=== PATIENT | male | born 1960 | race Caucasian/White ===

== ENCOUNTER 2018-03-19 10:29 | Inpatient (IN) | payer OTHER ==
[~2018-03-19] VITALS: Ht 167.6 cm; Wt 80.3 kg
[2018-03-19] VITALS (53 sets, daily range): BP systolic 77–174; BP diastolic 47–98
[2018-03-19 10:54] LABS: HEMATOCRIT 40.3 % (42.0-52.0); HEMOGLOBIN 12.4 gm/dL (14.0-18.0); MCH 33.1 pg (26.0-34.0); MCHC 30.8 g/dL (28.0-37.0); MCV 107.5 fL (80.0-100.0); MPV 7.5 fl. (7.2-11.1); NUCLEATED RBCS 0 /100WBC; PLATELET COUNT* 179 thou/uL (150-400); RBC 3.75 mil/uL (4.50-6.00); RDW-CV 15.4 % (10.5-14.5); WBC 13.9 thou/uL (4.0-11.0)
[2018-03-19 11:05] LABS: ANION GAP 21 mmol/L (7-16); BUN 13 mg/dL (7-18); CALCIUM 7.5 mg/dL (8.5-10.1); CHLORIDE 101 mmol/L (98-107); CO2 17 mmol/L (21-32); CREATININE 1.4 mg/dL (0.6-1.3); GLUCOSE 393 mg/dL (70-99); POTASSIUM 3.3 mmol/L (3.5-5.1); SODIUM 139 mmol/L (136-145)
[2018-03-19] MEDS ORDERED: METFORMIN HCL500 MG PO (11:06)
[2018-03-19 11:07] LABS: APTT 30.7 Seconds (25.0-31.3); INR 1.1; PROTIME 10.9 Seconds (9.20-11.50)
[2018-03-19] MEDS ORDERED: IMDUR 30 MG TAB30 M1 PO (11:07)
[2018-03-19] MEDS ORDERED: PLAVIX 75 MG TA75 MG PO (11:07)
--- NOTE | 2018-03-19 11:10 | NUR ---
PER FAMILY PT IS VISITING HIS DAUGHTER FROM [place] HE WAS OUT SHOVELING THE SNOW AND CAME INSIDE C/O OF SOA PT THEN WENT UNRESPONSIVE. EMS SUMMONED AND PT FOUND IN CARDIAC ARREST.
[2018-03-19 11:22] LABS: ALBUMIN 2.7 g/dL (3.4-5.0); ALKALINE PHOSPHATASE 100 U/L (46-116); CK-MB MASS 1.3 ng/mL (<0.5-3.6); LIPASE 310 U/L (73-393); MAGNESIUM 2.1 mg/dL (1.8-2.4); NT-PRO BRAIN NAT PEPTIDE 58 pg/mL (<300); SGOT 476 U/L (15-37); SGPT 676 U/L (30-65); TOTAL BILIRUBIN 0.5 mg/dL (<0.1-1.0); TOTAL PROTEIN 5.9 g/dL (6.4-8.2); TROPONIN-I LEVEL <0.06 ng/mL (<0.06)
[2018-03-19 11:54] LABS: ABSOLUTE LYMPHOCYTES 9.5 thou/uL (0.8-5.3); ABSOLUTE MONOCYTES 0.3 thou/uL (0.0-1.2); ABSOLUTE NEUTROPHILS 4.2 thou/uL (1.6-8.1); ATYPICAL LYMPHS 3 %
[2018-03-19 11:59] LABS: ANISOCYTOSIS Occasional; MACROCYTES 1+; PLATELET ESTIMATE ADEQUATE
[2018-03-19 12:28] LABS: BE -14.4 mmol/L (-2 to +3); HCO3 14.3 mmol/L (22.0-26.0); PCO2 43.6 mmHg (35.0-45.0); PO2 114.6 mmHg (75.0-100.0)
[2018-03-19 12:29] LABS: pH 7.135 (7.340-7.450)
[2018-03-19 14:18] LABS: CALCIUM 6.9 mg/dL (8.5-10.1); CREATININE 1.1 mg/dL (0.6-1.3); POTASSIUM 3.7 mmol/L (3.5-5.1)
[2018-03-19 14:30] LABS: ALBUMIN 3.1 g/dL (3.4-5.0); TOTAL BILIRUBIN 0.7 mg/dL (<0.1-1.0); TOTAL PROTEIN 6.5 g/dL (6.4-8.2)
[2018-03-19 16:08] LABS: BE -14.8 mmol/L (-2 to +3); HCO3 13.5 mmol/L (22.0-26.0)
[2018-03-19 16:10] LABS: PO2 157.9 mmHg (75.0-100.0); pH 7.146 (7.340-7.450)
--- NOTE | 2018-03-19 16:16 | 2DMMODE ---
[place] [address] 2 D/M-MODE ECHOCARDIOGRAM Name: FAHAD STEVENS Room: [address] IN [facility]#: [id number] Admission: 03/19/18 Attend Phys: Seng Herrera Discharge: Date of : 60 Date of Service: 03/19/18 1616 Report #: [id number] THIS REPORT FOR: //name// APPROVED REPORT Study performed: 03/19/2018 15:32:44 EXAM: Comprehensive 2D, Doppler, and color-flow Echocardiogram Patient Location: In-Patient Room #: [facility] [place] Status: routine BSA: 2.07 HR: 76 bpm BP: 90/62 mmHg Rhythm: NSR Other Information Study Quality: Good Indications Arrhythmia 2D Dimensions IVSd: 11.50 (7-11mm) LVOT Diam: 21.16 (18-24mm) LVDd: 44.71 mm PWd: 9.20 (7-11mm) Ascending Ao: 30.92 (22-36mm) LVDs: 36.07 (25-40mm) Aortic Root: 32.09 mm Volumes Left Atrial Volume (Systole) LA ESV Index: 25.40 mL/m2 Aortic Valve AoV Peak Jim.: 0.92 m/s AO Peak Gr.: 3.36 mmHg LVOT Max P.42 mmHg AO Mean Gr.: 2.00 mmHg LVOT Mean P.24 mmHg LVOT Max V: 0.78 m/s AO V2 VTI: 18.24 cm LVOT Mean V: 0.51 m/s ANTHONY (VTI): 3.08 cm2 LVOT V1 VTI: 15.97 cm Mitral Valve E/A Ratio: 1.05 MV Decel. Time: 188.55 ms MV E Max Jim.: 0.63 m/[place] [address] 2 D/M-MODE ECHOCARDIOGRAM Name: FAHAD STEVENS Room: [address] IN .R.#: [id number] Admission: 03/19/18 Attend Phys: Seng Herrera Discharge: Date of : 60 Date of Service: 03/19/18 1616 Report #: [id number] MV PHT: 54.68 ms MVA (PHT): 4.02 cm2 TDI E/Lateral E': 6.30 E/Medial E': 7.00 Medial E' Jim.: 0.09 m/s Lateral E' Jim.: 0.10 m/s Pulmonary Valve PV Peak Jim.: 0.75 m/s PV Peak Gr.: 2.28 mmHg Tricuspid Valve RAP Estimate: 5.00 mmHg TR Peak Gr.: 26.38 mmHg RVSP: 31.00 mmHg PA Pressure: 31.00 mmHg Left Ventricle Left ventricle is mildly dilated. There is severe global hypokinesis of the left ventricle. There is normal left ventricular wall thickness. Left ventricular systolic function is severely decreased. LVEF is 25-30%. Right Ventricle The right ventricle is normal size. The right ventricular systolic function is normal. Atria Left atrium is moderately dilated. The right atrium size is normal. Aortic Valve The aortic valve is normal in structure. No aortic regurgitation is present. There is no aortic valvular stenosis. Mitral Valve The mitral valve is normal in structure. Trace mitral regurgitation. No evidence of mitral valve stenosis. Tricuspid Valve The tricuspid valve is normal in structure. Mild tricuspid regurgitation. Mild pulmonary hypertension. Pulmonic Valve The pulmonary valve is normal in structure. There is no pulmonic [place] [address] 2 D/M-MODE ECHOCARDIOGRAM Name: FAHAD STEVENS Room: [address] IN [facility]#: [id number] Admission: 03/19/18 Attend Phys: Seng Herrera Discharge: Date of : 60 Date of Service: 03/19/18 1616 Report #: [id number] Great Vessels The aortic root is normal in size. IVC is normal in size and collapses >50% with inspiration. Pericardium There is no pericardial effusion. <Conclusion> Left ventricle is mildly dilated. There is normal left ventricular wall thickness. Left ventricular systolic function is severely decreased. LVEF is 25-30%. There is severe global hypokinesis of the left ventricle. Left atrium is moderately dilated. Trace mitral regurgitation. Mild tricuspid regurgitation. Mild pulmonary hypertension. <ELECTRONICALLY SIGNED> By: Gennaro Ly MD, FACC 03/19/18 1616 161 161 Gennaro yL MD, FACC /INF
--- NOTE | 2018-03-19 16:50 | EKG ---
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: Milagros MORENO : 1960 Requested By: Wilberto Almaguer Order Number: [id number] MD: Gennaro Ly Measurements Intervals [place] Rate: 60 P: NV: QRS: 25 QRSD: 119 T: 26 QT: 421 QTc: 421 Interpretive Statements Junctional rhythm Nonspecific intraventricular conduction delay Borderline repolarization abnormality No previous ECG available for comparison Electronically Signed On 03-19-2018 16:50:32 DIRECTOR TEEN POST by Gennaro Ly [email or web address] <ELECTRONICALLY SIGNED> By: Gennaro Ly MD, [facility] 03/19/18 1650 103 30 Gennaro Ly MD, FACC /EPI
[2018-03-19 18:26] LABS: CALCIUM 7.3 mg/dL (8.5-10.1); CREATININE 1.2 mg/dL (0.6-1.3); POTASSIUM 4.1 mmol/L (3.5-5.1)
--- NOTE | 2018-03-19 18:38 | NUR ---
PT NOT PROGRESSING TOWARD GOALS. PT ARRIVED IN THE ICU AT 1130AM. CODE ICE STARTED AT 1200 PT NOT ON SEDATION, NO ANAND, CODE ICE NOT STARTED. UNABLE TO PLACE A ANAND. UROLOGY WAS CONSULTED. ONLY WAY TO START CODE ICE ON PT WAS TO INSERT A RECTAL TEMP. TEMPERATURE HARD TO MONITOR. TEMP PROBE WILL NOT STAY IN RECTUM. PT FAMILY AT BEDSIDE. DOES NOT SPEAK [place]. DAUGHTERS AND GRANDSON DO SPEAK [place] AND ABLE TO RELAY INFORMATION ON TO . PT CURRENTLY ON TWO PRESSERS AND STABLE.
[2018-03-19 20:43] LABS: BE -9.7 mmol/L (-2 to +3); HCO3 18.4 mmol/L (22.0-26.0); PCO2 48.2 mmHg (35.0-45.0); PO2 84.2 mmHg (75.0-100.0)
[2018-03-19 20:45] LABS: pH 7.199 (7.340-7.450)
[2018-03-20] VITALS (77 sets, daily range): BP systolic 76–144; BP diastolic 20–86
[2018-03-20 03:02] LABS: URINE BILIRUBIN NEGATIVE (Negative); URINE BLOOD NEGATIVE (Negative); URINE CLARITY CLEAR; URINE COLOR YELLOW; URINE GLUCOSE-RANDOM TRACE (Negative); URINE KETONES 1+ (Negative); URINE LEUKOCYTES-REFLEX NEGATIVE (Negative); URINE NITRITE-REFLEX NEGATIVE (Negative); URINE PROTEIN NEGATIVE (Negative); URINE UROBILINOGEN 0.2 E.U./dl (0.2-1.0)
[2018-03-20 03:29] LABS: ABSOLUTE LYMPHOCYTES 1.3 thou/uL (0.8-5.3); ABSOLUTE MONOCYTES 0.3 thou/uL (0.0-1.2); ABSOLUTE NEUTROPHILS 12.9 thou/uL (1.6-8.1); BASOPHILS 0.2 %; EOSINOPHILS 0.1 %; HEMATOCRIT 44.5 % (42.0-52.0); HEMOGLOBIN 14.3 gm/dL (14.0-18.0); LYMPHOCYTES 8.9 %; MCH 32.7 pg (26.0-34.0); MCHC 32.1 g/dL (28.0-37.0); MONOCYTES 2.1 %; MPV 7.3 fl. (7.2-11.1); NUCLEATED RBCS 0 /100WBC; PLATELET COUNT* 197 thou/uL (150-400); POLYS 88.7 %; RBC 4.37 mil/uL (4.50-6.00); RDW-CV 15.1 % (10.5-14.5); WBC 14.6 thou/uL (4.0-11.0)
[2018-03-20 03:35] LABS: APTT 23.4 Seconds (25.0-31.3); INR 1.1
[2018-03-20 03:38] LABS: CALCIUM 7.7 mg/dL (8.5-10.1); CREATININE 0.9 mg/dL (0.6-1.3); MAGNESIUM 1.5 mg/dL (1.8-2.4); PHOSPHORUS* 1.8 mg/dL (2.5-4.9)
[2018-03-20 03:50] LABS: CK-MB MASS 31.8 ng/mL (<0.5-3.6)
[2018-03-20 03:52] LABS: POTASSIUM 2.6 mmol/L (3.5-5.1); TROPONIN-I LEVEL 3.13 ng/mL (<0.06)
[2018-03-20 06:28] LABS: BE -3.6 mmol/L (-2 to +3); HCO3 21.4 mmol/L (22.0-26.0); PCO2 38.6 mmHg (35.0-45.0); pH 7.361 (7.340-7.450)
[2018-03-20 06:30] LABS: PO2 139.9 mmHg (75.0-100.0)
--- NOTE | 2018-03-20 06:44 | NUR ---
PT. REMAINS ON CODE ICE PROTOCOL, HAS MAINTAINED CORE TEMP BETWEEN 89-93 DEGREES F. VECURONIUM GTT STARTED TO CONTROL SHIVERING, LEVOPHED AND NEOSYNEPHRINE GTT'S OFF AT THIS TIME. POTASSIUM, MAGNESIUM, AND PHOS REPLACING. NEXT LABS DUE AT 1200. PT. TO START REWARMING AT [phone]. TURNED Q2H TO PROMOTE SKIN INTEGRITY. UPDATES GIVEN TO PT'S DAUGHTERS, PT'S DOES NOT SPEAK LIBERIAN. PT. HAS BEEN BRADYCARDIC, SINUS ARRYTHMIA, LOOKS JUNCTIONAL AT TIMES. BILAT SOFT WRIST RESTRAINTS REMAIN IN PLACE. AMIO GTT, INSULIN GTT REMAIN INFUSING. ABG IMPROVED THIS A.M. LACTIC ACID REMAINS ELEVATED. REMAINS 1:1, WILL CONTINUE TO MONITOR.
--- NOTE | 2018-03-20 08:53 | NUR ---
WOUND CARE NOTE: CONSULT RECEIVED FOR PT INTUBATED/ POST CODE, CODE ICE. PATIENT WITH LASHAE OF 10, INTUBATED AND ON A PARALYTIC. EXTREMELY HIGH RISK OF PRESSURE ULCER DEVELOPMENT. HEELS ARE INTACT OFFLOADED APPROPRIATELY WITH PILLOW. MACERATION NOTED TO PROXIMAL EDGARDO-ANAL AREA WITH PARTIAL THICKNESS BREAKDOWN. BELIEVE THIS IS RELATED TO MOISTURE, NOT PRESSURE. LOW AIR LOSS MATTRESS IN PLACE. RECOMMEND TURN Q2 HOURS-KEEP OFF SUPINE/SEMI FOWLERS POSITION IF PATIENT ABLE TO TOLERATE. KEEP HEELS FLOATED OFF BED, ENSURE MEDICAL DEVICES ARE NOT CAUSING PRESSURE LIMIT HOB ELEVATION TO LOW POSSIBLE
--- NOTE | 2018-03-20 10:23 | NUR ---
DR CARNEY FROM CARDIOLOGY ORDERED 4 BAGS OF POTASSIUM 10 MEQ'S EACH. PT ALREADY ON ELECTROLYTE PROTOCOL AND TO RECEIVE 6 BAGS OF 20 MEQ'S EACH. CALLED CARDIOLOGY TO CONFIRM REPLACEMENT OF POTASSIUM. PER CARIOLOGY REPLACE ELECTROLYTE PROTOCOL. GIVE THE 20MEQS PER PROTOCOL.
--- NOTE | 2018-03-20 10:45 | NUR ---
PT ADMITTED YESTERDAY AFTER COLLAPSING AT HOME, REMAINS ON VENT AND CODE ICE PROTOCAL. PT AND LIVE IN [place], DO NOT SPEAK FRENCH. THEY HAVE BEEN VISITING THEIR DTR BRENDA. SPOKE WITH BRENDA, DISCUSSED ROLE OF CASE MGT. WILL CONTINUE TO FOLLOW.
--- NOTE | 2018-03-20 11:07 | NUR ---
Nutrition: Pt admitted and is code ICE. Holding TF/nutrition for now. Jose Elias score 10. H/o HIV, CHF, DM. Has shock liver, SIRS, metabolic acidosis, per progress notes. Intubated and on paralytic. Has OGT. K+ 2.6, BG 164, alb 3.1, prealb 19.8. Will follow POC, 03/21/18.
[2018-03-20 12:09] LABS: ABSOLUTE LYMPHOCYTES 1.4 thou/uL (0.8-5.3); ABSOLUTE MONOCYTES 0.2 thou/uL (0.0-1.2); ABSOLUTE NEUTROPHILS 12.1 thou/uL (1.6-8.1); BASOPHILS 0.2 %; HEMATOCRIT 42.2 % (42.0-52.0); HEMOGLOBIN 13.6 gm/dL (14.0-18.0); MCH 32.6 pg (26.0-34.0); MCHC 32.2 g/dL (28.0-37.0); MCV 101.3 fL (80.0-100.0); MONOCYTES 1.6 %; MPV 7.4 fl. (7.2-11.1); NUCLEATED RBCS 0 /100WBC; PLATELET COUNT* 181 thou/uL (150-400); POLYS 88.2 %; RBC 4.17 mil/uL (4.50-6.00); RDW-CV 15.2 % (10.5-14.5); WBC 13.7 thou/uL (4.0-11.0)
[2018-03-20 12:30] LABS: CALCIUM 7.1 mg/dL (8.5-10.1); CREATININE 0.9 mg/dL (0.6-1.3); MAGNESIUM 1.9 mg/dL (1.8-2.4); PHOSPHORUS* 1.3 mg/dL (2.5-4.9)
--- NOTE | 2018-03-20 12:41 | CON ---
[facility] [address] [place] [address] CONSULTATION Name: FAHAD STEVENS Room: [address] IN M.R.#: [id number] Admission: 03/19/18 Attend Phys: Jordan Mcwilliams Discharge: Date of : 60 Report #: [id number] THIS REPORT FOR: //name// CC: [facility] physician/PCP Seng Herrera DATE OF SERVICE: 03/20/2018 REQUESTING PHYSICIAN: Seng Herrera MD. REASON FOR CONSULTATION: Acute respiratory failure, status post out of hospital cardiopulmonary arrest on cooling protocol. DISCUSSION: The patient is a 57-year-old nonsmoking man who normally resides in [place]. He was visiting his daughter and son-in-law and was staying at their home. Apparently, he had been helping with snow removal (his son-in-law just been discharged from the hospital where he was treated for severe asthma). He had gone into the house, complaining of marked shortness of breath. ED notes indicate he had "foam" coming from his mouth, collapsed, EMS was called. Apparently, he was shocked 3 times, was intubated. His rhythm was V-tach, received epinephrine. He did receive CPR en route. Unknown what his actual downtime was. He did have normal sinus blood pressure at the time of presentation to the ED. Central line was placed in the Emergency Department. He was evaluated. Cardiology was also contacted. He had imaging studies done. Subsequently, he was placed on the cooling protocol. He was still on that when he was seen by me earlier this morning. PAST MEDICAL HISTORY: He is a nonsmoker. He has no known pulmonary disease. He does have a history of angina, details not clear. He has never had open heart surgery nor any stents placed. Also, he has a history of diabetes mellitus and hypertension as well as HIV. HOME MEDICATIONS: Have been metformin, Plavix and Imdur as well. He is receiving antiviral therapy with HAART. SOCIAL HISTORY: He lives in [place]. Nonsmoker. He is up here visiting family. FAMILY HISTORY: Unable to obtain from the patient. Per family, it is positive for hypertension. REVIEW OF SYSTEMS: Unable to obtain from the patient. PHYSICAL EXAMINATION: GENERAL: Appearance of a man looks his stated age. He is currently sedated and paralyzed on the ventilator. He has a cooling protocol in place. HEENT: Head appears normocephalic. Sclerae nonicteric[place] [address] CONSULTATION Name: FAHAD STEVENS Room: [address]#: [id number] Admission: 03/19/18 Attend Phys: Jordan Mcwilliams Discharge: Date of : 60 Report #: [id number]. He is orally intubated, also has an oral gastric tube in place. NECK: Without any adenopathy. No JVD is noted. No supraclavicular adenopathy. HEART: Regular. He is mildly tachycardic. No S3 is heard. LUNGS: Sounds are clear. Excursion is equal. No wheezing is heard. ABDOMEN: Appears soft. GENITOURINARY: Suresh catheter is in place. EXTREMITIES: Femoral pulses are present. He has no clubbing. No edema is noted. Extremities are normal in appearance. They are cool given his hypothermia. He does have an IJ catheter in place. NEUROLOGIC: Cannot assess as he is sedated and paralyzed on the ventilator. LABORATORY AND X-RAY FINDINGS: Chest x-ray done this morning shows endotracheal tube in position; does have some right upper lobe infiltrate/atelectasis. It is improved from studies done yesterday. He did have a CT chest done yesterday, no contrast. Endotracheal tube is noted. He had right upper lobe atelectasis/infiltrate, some small infiltrate seen in the lower lobes bilaterally. He had CT scan done of his abdomen, would suggest some hepatic steatosis, some mild urinary bladder mural thickening. CT head without contrast was negative for acute findings. This morning his BUN is 19, creatinine of 0.9, serum bicarbonate is 26, improved from 17 yesterday. Transaminases are elevated, his AST is 781, ALT 969, total bilirubin 0.7, alkaline phosphatase 128, total protein 6.5, albumin 3.1. Lactic acid was 14.6 on admission, down to 5.4 this morning. He had a peak troponin yesterday evening of 6.99 down to 3.13 this morning. INR was 1.1. White blood cell count 14,600, hemoglobin 14.3, hematocrit 44.5, MCV is 102, platelets are 197,000. Arterial blood gases done initially, he had a pH of 7.135, pCO2 of 44, pO2 of 115, bicarb 15 with a saturation of 96%. Most recent blood gases done this morning, pH 7.36, pCO2 of 39, pO2 of 140, bicarbonate 21 with a saturation of 98%. Blood sugar on admission was 393, down to 201 this morning. Blood and urine cultures have been sent, no results are available yet. IMPRESSION: 1. Acute respiratory failure, on ventilator, oxygenating well. 2. Status post out of hospital cardiopulmonary arrest. Apparently he had ventricular tachycardia, most likely related to underlying heart disease. Known history of anginal, he does have a decrease in his ejection fraction. 3. Right upper lobe atelectasis/infiltrate. Unclear if some of this is related to secretions. By history, he did appear to have a respiratory tract infection or pneumonia. He is improving on this morning's films. 4. Shock liver. 5. Marked metabolic acidosis, improved. He had been on bicarbonate drip (discontinued this morning). 6. Hypotension, improved. He is off pressors since early this morning. 7. History of diabetes mellitus, elevated blood sugar on admission. Some of this could be stress related as well [place] [address] CONSULTATION Name: FAHAD STEVENS Room: [address] IN [facility].#: [id number] Admission: 03/19/18 Attend Phys: Jordan Mcwilliams Discharge: Date of : 60 Report #: [id number] 8. History of human immunodeficiency virus, details not clear. By history, he has not had issues with infections. He has been on antiviral therapy. 9. History of hypertension. RECOMMENDATIONS: 1. Suggest to continue vent support. We will follow up blood gases later this afternoon to see if additional vent changes need to be done. Also, follow up blood gases in the morning. We will obviously need to see how he does from a neurological standpoint once he is warmed up. Depending on his hemodynamic status and his neurological status, then hopefully start working on weaning trials. 2. Followup imaging tomorrow. 3. Continue generalized supportive care. 4. I discussed with his daughter at the bedside who does speak [place]. She translated to his who is also at the bedside. 5. Also I had an opportunity to discuss with Dr. Ly from Cardiology. <ELECTRONICALLY SIGNED> By: Shira Banuelos MD 03/20/18 1241 0935 1223Shira Banuelos MD /nt
[2018-03-20 12:46] LABS: APTT 25.4 Seconds (25.0-31.3); PROTIME 10.7 Seconds (9.20-11.50)
--- NOTE | 2018-03-20 13:03 | NUR ---
PT HR WENT INTO 30'S. PT HYPOTENSIVE WITH SYSTOLIC BP IN 70'S MAP OF 59. LEVOPHED RE-STARTED PER ORERS. CARDIOLOGY NOTIFIED. RECEIVED ORDER FOR DOPAMINE GTT. WITHIN 5 MINUTES WENT INTO AN IDIOVENTRICULAR RHYTHM WITH HEART RATE IN 70'S. BP 140'S/70'S. LEVOPHED TITRATED OFF. DOPAMINE TITRATED OFF AND PT WENT BACK INTO SINUS RHYTHM WITH 1ST DEGREE AV BLOCK. CARDIOLOGY NOTIFIED SECOND TIME. RECEIVED ORDER TO STOP DOPAMINE AND GIVE FLUID BOLUS.
[2018-03-20 14:55] LABS: BE -4.8 mmol/L (-2 to +3); HCO3 19.5 mmol/L (22.0-26.0); PCO2 33.9 mmHg (35.0-45.0); PO2 81.8 mmHg (75.0-100.0); pH 7.377 (7.340-7.450)
--- NOTE | 2018-03-20 16:45 | NUR ---
WHEN PT IS REPOSITIONED TO RIGHT SIDE PT BECOMES HYPOTENSIVE WITH SYSTOLIC BP IN 70'S.
[2018-03-20 18:20] LABS: HEMATOCRIT 37.7 % (42.0-52.0); HEMOGLOBIN 12.2 gm/dL (14.0-18.0); MCH 32.4 pg (26.0-34.0); MCHC 32.2 g/dL (28.0-37.0); MCV 100.5 fL (80.0-100.0); MPV 7.1 fl. (7.2-11.1); NUCLEATED RBCS 0 /100WBC; PLATELET COUNT* 186 thou/uL (150-400); RBC 3.75 mil/uL (4.50-6.00); RDW-CV 14.6 % (10.5-14.5); WBC 17.6 thou/uL (4.0-11.0)
[2018-03-20 18:40] LABS: CALCIUM 6.6 mg/dL (8.5-10.1); CREATININE 0.7 mg/dL (0.6-1.3); MAGNESIUM 1.6 mg/dL (1.8-2.4); PHOSPHORUS* 3.1 mg/dL (2.5-4.9)
[2018-03-20 18:41] LABS: POTASSIUM 2.9 mmol/L (3.5-5.1)
--- NOTE | 2018-03-20 18:45 | NUR ---
PT CAME BACK FROM SMOG TECHNICIAN WITH TEMPORARY PACEMAKER IN PLACE. VECRONIUM DC'D. INSULIN HELD FOR 1 HOUR BLOOD GLUCOSE IN 'S.
[2018-03-20 18:47] LABS: ABSOLUTE LYMPHOCYTES 0.7 thou/uL (0.8-5.3); ABSOLUTE MONOCYTES 1.2 thou/uL (0.0-1.2); ABSOLUTE NEUTROPHILS 15.7 thou/uL (1.6-8.1); PLATELET ESTIMATE ADEQUATE
[2018-03-20 19:03] LABS: INR 1.5; PROTIME 15.5 Seconds (9.20-11.50)
[2018-03-20 19:05] LABS: APTT 53.1 Seconds (25.0-31.3)
[2018-03-21] VITALS (50 sets, daily range): BP systolic 86–122; BP diastolic 48–69
[2018-03-21 02:23] LABS: HEMATOCRIT 37.2 % (42.0-52.0); HEMOGLOBIN 12.1 gm/dL (14.0-18.0); MCH 32.6 pg (26.0-34.0); MCHC 32.5 g/dL (28.0-37.0); MCV 100.3 fL (80.0-100.0); MPV 7.5 fl. (7.2-11.1); RBC 3.71 mil/uL (4.50-6.00); RDW-CV 15.1 % (10.5-14.5); WBC 19.9 thou/uL (4.0-11.0)
[2018-03-21 02:38] LABS: ALBUMIN 2.4 g/dL (3.4-5.0); CALCIUM 6.6 mg/dL (8.5-10.1); CREATININE 0.8 mg/dL (0.6-1.3); MAGNESIUM 1.8 mg/dL (1.8-2.4); POTASSIUM 3.9 mmol/L (3.5-5.1); TOTAL BILIRUBIN 0.3 mg/dL (<0.1-1.0); TOTAL PROTEIN 5.6 g/dL (6.4-8.2)
[2018-03-21 02:42] LABS: CHOLESTEROL 123 mg/dL (<200); HDL CHOLESTEROL 36 mg/dL (>40); LDL CHOLESTEROL 66 mg/dL (<100); TC:HDL 3.4 Ratio (Not establshd); TRIGLYCERIDE 107 mg/dL (<150); VLDL 21 mg/dL (<40)
[2018-03-21 02:48] LABS: SERUM ASSESSMENT CLEAR
[2018-03-21 02:50] LABS: TROPONIN-I LEVEL 1.25 ng/mL (<0.06)
--- NOTE | 2018-03-21 15:18 | NUR ---
PT PROGRESSING TOWARD GOALS. DURING SEDATION VACATION, PT OPENED EYES, MOVED HEAD FROM LEFT TO RIGHT, PT DID NOT FOLLOW COMMANDS AND EXHIBITED SEIZURE LIKE ACTIVITY WITH LEFT SHOULDER TWITCHING. SEDATION WAS TURNED BACK ON AND SEIZURE LIKE ACTIVITY CEASED. SHEATH WAS PULLED AT 4413-3275. PT CURRENLTY ON LEVO GTT TO ASSIST WITH BP. PT OFF OF INSULIN GTT AND AGGRASTAT. LOADING DOSE OF EFFIENT WAS GIVEN.
--- NOTE | 2018-03-21 16:36 | CON ---
[facility] [address] [place] [address] CONSULTATION Name: FAHAD STEVENS Room: [address] IN .R.#: [id number] Admission: 03/19/18 Attend Phys: Jordan Mcwilliams Discharge: Date of : 60 Report #: [id number] THIS REPORT FOR: //name// CC: [facility] physician/PCP Seng Herrera DATE OF SERVICE: 03/19/2018 INDICATION: Out of hospital arrest. HISTORY OF PRESENT ILLNESS: The patient is a 57-year-old gentleman who apparently had an out of hospital arrest at home after shoveling some snow. The family that was present witnessed foaming at the mouth and extreme shortness of breath followed by collapse. EMS was notified. The patient was found to be in ventricular fibrillation. The patient required 3 cardioversions to regain a perfusable rhythm. The patient has been admitted to the ICU for code ice protocol. The patient was intubated in the field. No history is available from the patient. Per the chart, the patient's family reports that the patient has angina, diabetes and hypertension. There was no known history of coronary stents or surgeries. PAST MEDICAL HISTORY: As outlined above consists of angina, diabetes and hypertension. LISTED HOME MEDICATIONS: Metformin 500 mg b.i.d., Plavix 75 mg daily, isosorbide mononitrate 30 mg daily. ALLERGIES: None documented. FAMILY HISTORY: Not obtainable. SOCIAL HISTORY: Not obtainable. REVIEW OF SYSTEMS: Not obtainable. PHYSICAL EXAMINATION: GENERAL: Well-kept appearing gentleman who is currently on code ice. He is intubated and unresponsive. He is on low dose pressors as well as amiodarone drip and propofol. HEENT: Normocephalic, atraumatic. NECK: Shows no obvious jugular venous distension. LUNGS: Portions of the chest that are available for exam are clear. CARDIAC: Reveals a regular rhythm. I do not appreciate gallop or murmur. ABDOMEN: Reveals a soft abdomen. EXTREMITIES: Shows no edema. Peripheral pulses 1+ and palpable. SKIN: [place] [address] CONSULTATION Name: FAHAD STEVENS Room: [address] IN [facility]#: [id number] Admission: 03/19/18 Attend Phys: Jordan Mcwilliams Discharge: Date of : 60 Report #: [id number] LABORATORY DATA: EKG post-cardioversion shows what appears to be a junctional rhythm with a nonspecific intraventricular conduction delay. There is no acute ST elevation identified. Labs are reviewed. Initial troponin was less than 0.06. NT-proBNP was unremarkable. Chest x-ray shows bibasilar and right upper lobe atelectasis. CT head was unremarkable. IMPRESSION AND RECOMMENDATIONS: 1. Out of hospital arrest with ventricular arrhythmia, etiology not entirely clear. It is certainly possible the patient has significant underlying ischemic coronary artery disease. He has had no elevation in troponin thus far. We will check serial troponins. There is no evidence of ST elevation myocardial infarction on EKG. Would not proceed with invasive evaluation at this time. We will continue supportive care. Further stress testing or invasive evaluation pending outcome. 2. Diabetes per primary hospitalists. 3. Hypertension. The patient's blood pressure currently low post out of hospital arrest. 4. Ventricular fibrillation. The patient on amiodarone drip. At this point in time, he is maintaining sinus rhythm. Would continue amiodarone for now. We will consider switching to amiodarone per G-tube or orally in the next few days. I would like to obtain echocardiogram to evaluate for any underlying cardiomyopathy. <ELECTRONICALLY SIGNED> By: Gennaro Ly MD, FACC 03/21/18 1636 1326 1729Microbin Ly MD, FACC /nt
--- NOTE | 2018-03-21 17:46 | EKG ---
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 <ELECTRONICALLY SIGNED> By: Gennaro Ly MD, FACC 03/21/18 1746 44 44 Gennaro Ly MD, FACC /EPI
--- NOTE | 2018-03-21 17:48 | EKG ---
[place] [address] ELECTROCARDIOGRAM REPORT Name: FAHAD STEVENS Room: [address] ADM IN M.R.#: [id number] Admission: 03/19/18 Attend Phys: Jordan Mcwilliams Discharge: Date of : 60 Report #: [id number] THIS REPORT FOR: //name// [facility] Test Date: 2018-03-21 Test Time: 08:37:29 Pat Name: FAHAD PAULINO CHANEL Department: Room: [address] Gender: M Clerical Investigator: : 1960 Requested By: Lizandro Ochoa Order Number: [id number] [place] MD: Gennaro Ly Measurements Intervals [place] Rate: 104 P: 124 [place]: 99 QRS: 34 QRSD: 97 T: 250 QT: 437 QTc: 575 Interpretive Statements Sinus tachycardia Borderline repolarization abnormality Prolonged QT interval Compared to ECG 03/19/2018 10:31:21 Prolonged QT interval now present Junctional rhythm no longer present Intraventricular conduction delay no longer present Electronically Signed On 03-21-2018 17:47:55 PRESS OPERATOR APPRENTICE by Gennaro Ly [email or web address] <ELECTRONICALLY SIGNED> By: Gennaro Ly MD, FACC 03/21/18 1747 0837 0837 Gennaro Ly MD, FAC /EPI
[2018-03-22] VITALS (59 sets, daily range): BP systolic 94–166; BP diastolic 55–103
[2018-03-22 04:01] LABS: BE -2.8 mmol/L (-2 to +3); HCO3 21.9 mmol/L (22.0-26.0); PCO2 37.4 mmHg (35.0-45.0); PO2 71.3 mmHg (75.0-100.0); pH 7.385 (7.340-7.450)
--- NOTE | 2018-03-22 04:38 | NUR ---
NO URINE OUTPUT. WHEN REPOSITIONING PT HE BEGAN COUGHING AND URINE WAS SEEN LEAKING AROUND CATHETER. ATTEMPTED TO FLUSH CATHETER, UNABLE TO FLUSH AFTER MULTIPLE ATTEMPTS. CATHETER REMOVED AND REPLACED, IMMEDIATE RETURN OF 600ML DARK YELLOW URINE CONTAINING SEDIMENT.
--- NOTE | 2018-03-22 08:00 | NUR ---
RECEIVED REPORT FROM OPERATIONS SPECIALIST NURSE ALISA. ASSESSMENT CHARTED. PATIENT REMAINS VENTED AND SEDATED. DECREASING SEDATION AT THIS TIME TO PERFORM SEDATION VACATION. SOME PURPOSEFUL MOVEMENT. FENTANYL AND VERSED GTTS REMAIN. MOUTH CARE AND TURNING DONE. FAMILY IN AND OUT TO VISIT THIS AM. GOALS ARE TO REMAIN OFF LEVOPHED, DECREASE SEDATION PATIENT TOLERATES AND Q2H TURNS FOR SKIN INTEGRITY. BED IN LOWEST POSITON, ROLL CUTTING OPERATOR IN PLACE, FALL PRECAUTIONS IN PLACE.
--- NOTE | 2018-03-22 08:43 | NUR ---
PATIENT RANDOMLY DROPPED HEART RATE FROM 104 TO 52 WITH NO STIMULATION. WILL CONTINUE TO MONITOR.
[2018-03-22 08:48] LABS: ABSOLUTE BASOPHILS 0.1 thou/uL (0.0-0.2); ABSOLUTE LYMPHOCYTES 1.6 thou/uL (0.8-5.3); ABSOLUTE MONOCYTES 0.8 thou/uL (0.0-1.2); ABSOLUTE NEUTROPHILS 14.4 thou/uL (1.6-8.1); BASOPHILS 0.5 %; HEMATOCRIT 32.5 % (42.0-52.0); HEMOGLOBIN 10.7 gm/dL (14.0-18.0); LYMPHOCYTES 9.2 %; MCH 33.6 pg (26.0-34.0); MCV 101.8 fL (80.0-100.0); NUCLEATED RBCS 0 /100WBC; PLATELET COUNT* 163 thou/uL (150-400); POLYS 85.3 %; RBC 3.19 mil/uL (4.50-6.00); RDW-CV 15.3 % (10.5-14.5); WBC 16.9 thou/uL (4.0-11.0)
[2018-03-22 09:05] LABS: ALBUMIN 2.3 g/dL (3.4-5.0); CALCIUM 6.5 mg/dL (8.5-10.1); CREATININE 0.9 mg/dL (0.6-1.3); POTASSIUM 3.6 mmol/L (3.5-5.1); TOTAL BILIRUBIN 0.3 mg/dL (<0.1-1.0); TOTAL PROTEIN 5.3 g/dL (6.4-8.2)
--- NOTE | 2018-03-22 11:23 | CARD ---
[address] [address] CARDIAC CATH REPORT Name: FAHAD STEVENS Room: [address] IN [facility].#: [id number] Admission: 03/19/18 Attend Phys: Jordan Mcwilliams Discharge: Date of : 60 Report #: [id number] THIS REPORT FOR: //name// APPROVED REPORT Study performed: 03/20/2018 14:34:26 Patient Details Patient Status: In-Patient Room #: ICU 4 The patient is a 57 year-old male Event Personnel Gennaro Ly Patient Registration Representative, Yovany Buck, Nati Jacobson RN RN, Larry Blanco (R) Flora, Heidi Flanagan RTR Scrub, Lizandro Ochoa Forest Fire Fighter, [place] Mays RN Digital Analyst Dr. Ly Procedures Performed Art Access - R femoral artery* Left Heart Cath w/or w/o Coronaries [facility] w/wo Plasty Single Left Main Indication Non-STEMI Risk Factors Hypercholesterolemia Admission/Lab Medications/Medications given during procedure Aspirin, Platelet Aff. Inhib., Angiomax bolus and infusion Procedure Narrative The patient was brought urgently to the Cardiac Catheterization Laboratory and was prepped and draped in a sterile manner. The right femoral was infiltrated with 2% Lidocaine subcutaneous anesthesia. A 6fr Ultimum Sheath sheath was inserted into the right femoral artery. Coronary angiography was performed using coronary diagnostic catheters. The right coronary system was accessed and visualized with a Diagnostic 6Fr JR 4 catheter. The left coronary system was accessed and visualized with a Diagnostic 6Fr JL 4 catheter. The patient tolerated the procedure well and there were no complications associated with the procedure. Intraoperative Conscious Sedation Sedation start time: 4:13 Case end Time: 5:11 [place] [address] CARDIAC CATH REPORT Name: FAHAD STEVENS Room: [address]#: [id number] Admission: 03/19/18 Attend Phys: Jordan Mcwilliams Discharge: Date of : 60 Report #: [id number] Fluoro Time: 13.1 minutes Dose: DAP [id number] cGycm2 2374 mGy Contrast Type and Amount: Visipaque 300 ml Diagnostic Cath Left Main 90% proximal stenosis LAD 20 Percent proximal narrowing with right to left collaterals filling the LAD in retrograde fashion Circumflex 0% narrowing Right Coronary Dominant vessel with 20% mid vessel narrowing and right to left collaterals filling the LAD system Left Ventriculography Left Ventriculography was not performed. Hemodynamics The aortic pressure is 107/53 mmHg with a mean of 30 mmHg. PCI Technique Lesion Anticoagulation was achieved with Angiomax. Percutaneous coronary intervention was performed on the LM. The lesion stenosis prior to intervention was 90% with CHELSI 3 flow. A 6F JL 3.5 Guide Catheter was used to engage the ostium. A ProWorldMate 180 Interventional Guidewire was used to cross the lesion. BALLOON DILATION A Balloon catheter Trek RX 3.0 X 12 was inserted and inflated up to 16.00atm for 8seconds. Additional Inflation: 20.00atm for 13seconds. STENT DEPLOYMENT A drug-eluting stent Xience Heidy 3.5X8mm was inserted and inflated up to 14.00atm for 8seconds. Additional Inflation: 17.00atm for 6seconds. POST STENT DEPLOYMENT BALLOON DILATION A Balloon catheter NC Trek RX 3.75X8 was inserted and inflated up to 17.00atm for 10seconds. Final angiography reveals 0 % stenosis with CHELSI 3 flow. Conclusion #1 severe coronary disease characterized by the following: A 90% proximal left main [place] [address] CARDIAC CATH REPORT Name: FAHAD STEVENS Room: [address] IN [facility]#: [id number] Admission: 03/19/18 Attend Phys: Jordan Mcwilliams Discharge: Date of : 60 Report #: [id number] B 20% proximal LAD narrowing C 20% narrowing of the midportion of the dominant right coronary artery with right to left collaterals filling the LAD in retrograde fashion #2 placement of a temporary pacemaker via the right femoral venous approach by Dr. Ly #3 successful percutaneous coronary intervention with deployment of drug-eluting stent at site of 90% proximal left main coronary stenosis with 0% residual narrowing and CHELSI-3 flow to distal circulation Recommendations Aggressive Medical Therapy Medications Administered Angiomax bolus and infusion during the case followed by Aggrastat bolus and infusion post-procedurally Diagnostic Cath Approved by: Gennaro Ly MD Date/Time: 03/22/2018 11:22:44 <ELECTRONICALLY SIGNED> By: Lizandro Ochoa MD, [facility] 03/22/18 1123 [id number] Ochoa MD, [facility] /INF
--- NOTE | 2018-03-22 17:32 | NUR ---
SPOKE WITH DAUGHTER, BRENDA AND HER . THEY HAD QUESTIONS ABOUT PT.'S GREEN CARD AND HIS LONG STAY IN HOSPITAL. BRENDA SAID PT. AND HIS WERE HERE FOR ABOUT 3 MONTHS AND TO GO HOME AFTER THE NEW YEAR. TOLD HER MY POTTERY MACHINE OPERATOR,LUIZA, LEFT A MESSAGE FOR VIDA AT [facility]. SHE SHOULD BE CALLING HER TODAY TO ANSWER ANY QUESTIONS SHE MIGHT HAVE. EXPLAINED [facility] TO HER.
--- NOTE | 2018-03-22 18:42 | NUR ---
WEANED DOWN A LOT OF SEDATION THIS SHIFT. PATIENT DOES WAKE UP BUT DOES NOT FOLLOW COMMANDS. DAUGHTER REPORTED TO THIS NURSE THAT PATIENT DOES NOT SPEAK ANY MOHAWK, DAUGHTER ATTEMPTED TO PROMPT HER FATHER TO SQUEEZE HER HAND, WIGGLE HIS TOES OR EVEN FOLLOW THIS NURSES FINGER BUT HE JUST THRASHED HIS HEAD AND DID NOT FOLLOW COMMANDS. NO APPARENT PAIN, FENTANYL GTT REMAINS BUT AT LOW RATE. PRECEDEX GTT STARTED TODAY AND TOLERATING WELL. REMAINS SINUS RHYTHM IN 'S. DR CARNEY SPOKE WITH FAMILY TODAY WELL DR MEJÍA ([facility]). REMAINED OFF LEVO THIS SHIFT ALSO. TOLERATING TUBE FEEDS. FAMILY UPDATED BY NURSE MULTIPLE TIMES THIS SHIFT ALSO, ALL QUESTIONS ANSWERED AT THIS TIME. EARTH SCIENCE TECHNICIAN IN PLACE, BED IN LOW POSITION, FALL PREACUTIONS IN PLACE.
--- NOTE | 2018-03-22 23:14 | NUR ---
ATTEMPTED TO TITRATE DOWN SEDATION DUE TO INTENDED WEANING TRIAL IN AM. FENTANYL REMAINED AT 20 MCG/HR, PRECEDEX GRADUALLY TITRATED OFF. SHORTLY THEREAFTER PT BEGAN THRASHING HEAD AND EXTREMITIES, NO TRACKING OR FOLLOWING COMMANDS, GAZE REMAINED FIXED UPWARD. FAMILY AT BEDSIDE ASKING IF PTS MOVEMENT IS A GOOD SIGN. EXPLAINED POSITIVE SIGNS ARE FOLLOWING COMMANDS, TRACKING MOVEMENT WITH EYES, AND PURPOSEFUL MOVEMENT. DAUGHTER ASKED HOW LONG IT TAKES FOR BRAIN INJURY TO HEAL, EXPLAINED POSSIBILITY OF LITTLE TO NO IMPROVEMENT FROM CURRENT STATE BUT THAT IT IS TOO EARLY TO SAY AND MORE TESTING WOULD LIKE BE REQUIRED. FAMILY VERBALIZED UNDERSTANDING.
[2018-03-23] VITALS (38 sets, daily range): BP systolic 115–170; BP diastolic 61–100
[2018-03-23 04:49] LABS: HEMATOCRIT 32.1 % (42.0-52.0); HEMOGLOBIN 10.5 gm/dL (14.0-18.0); MCH 33.2 pg (26.0-34.0); MCHC 32.7 g/dL (28.0-37.0); MCV 101.4 fL (80.0-100.0); MPV 7.7 fl. (7.2-11.1); RBC 3.17 mil/uL (4.50-6.00); WBC 13.6 thou/uL (4.0-11.0)
[2018-03-23 04:59] LABS: CALCIUM 7.4 mg/dL (8.5-10.1); CREATININE 0.8 mg/dL (0.6-1.3); MAGNESIUM 2.4 mg/dL (1.8-2.4); POTASSIUM 3.8 mmol/L (3.5-5.1)
--- NOTE | 2018-03-23 07:36 | NUR ---
REMAINS STABLE ON VENT. SEDATED ON PRECEDEX GTT ONLY AT THIS TIME. TF ON HOLD SINCE 429 DUE TO POSSIBILITY OF WEANING TRIAL. COMPLETE BED BATH GIVEN. PT HAS BEEN TURNED Q2HR THROUGHOUT THE SHIFT.
[2018-03-23 08:56] LABS: BE 0.5 mmol/L (-2 to +3); HCO3 24.8 mmol/L (22.0-26.0); PCO2 38.5 mmHg (35.0-45.0); PO2 81.2 mmHg (75.0-100.0); pH 7.426 (7.340-7.450)
--- NOTE | 2018-03-23 09:51 | NUR ---
PT TO BE EXTUBATED TODAY. PT STILL ON SEDATION. WILL WEAN SEDATION AND WAKE UP PT BEFORE EXTUBATING THIS AFTERNOON.
--- NOTE | 2018-03-23 10:57 | NUR ---
PT EXTUBATED AT 1050AM. PT ABLE TO NOD HEAD YES WHEN ASKED IF HE IS OK. PTS FAMILY AT BEDSIDE.
--- NOTE | 2018-03-23 16:28 | NUR ---
PT HAD A CHANGE IN RESPIRATORY STATUS. PT GIVEN ATIVAN TO ASSIST WITH HIGH RESPIRATORY RATE. PT CONTINUES TO BE RESTLESS, WITH HIGH RESPIRATORY RATE. CHANGED NC TO HIGH ALBA TO ASSIST WITH LOW SAT OF 88%. ABG AND CXR ORDERED PER ICU PROTOCOL.
[2018-03-23 16:40] LABS: BE 1.8 mmol/L (-2 to +3); HCO3 25.6 mmol/L (22.0-26.0); PCO2 37.4 mmHg (35.0-45.0); PO2 62.7 mmHg (75.0-100.0); pH 7.454 (7.340-7.450)
[2018-03-24] VITALS (12 sets, daily range): BP systolic 110–172; BP diastolic 61–98
[2018-03-24 04:07] LABS: MCH 33.1 pg (26.0-34.0); MCHC 32.4 g/dL (28.0-37.0); MPV 7.5 fl. (7.2-11.1); RBC 3.33 mil/uL (4.50-6.00); RDW-CV 15.3 % (10.5-14.5); WBC 11.7 thou/uL (4.0-11.0)
[2018-03-24 04:18] LABS: CALCIUM 8.1 mg/dL (8.5-10.1); CREATININE 0.8 mg/dL (0.6-1.3); MAGNESIUM 1.8 mg/dL (1.8-2.4); POTASSIUM 3.6 mmol/L (3.5-5.1)
--- NOTE | 2018-03-24 04:53 | NUR ---
PT ABLE TO FOLLOW SOME COMMANDS. WHEN ASKED IN [place] TO BLINK EYES AND OPEN EYES HE RESPONDS. ABLE TO MOVE HANDS AND FEET BUT NOT ON COMMAND. WAS AT BEDSIDE SHE ASKED HIM IF HE KNEW WHO SHE WAS HE OPENED EYES AND NODDED YES. NG WAS PLACED AT BEGINING OF SHIFT TUBE FEEDS NOW AT GOAL RESIDUALS <10. PT THRASHING HEAD CONSTANTLY BUT WHEN ASKED IF HE IS COMFORTABLE HE NODS YES. PT HAD SMALL LIQUID STOOL THIS A.M. CONTINUES ON PRECEDEX GTT TITRATING DOWN. HIGH FLOW 9L 93-95 O2 SAT. PT RECEIVED Q2H TURNS WITH ORAL CARE, MINIMAL ORAL SECRETION. URINE OUTPUT ADEQUATE. BED TO LOWEST POSITION. WILL CONTINUE TO MONITOR CLOSELY.
--- NOTE | 2018-03-24 17:43 | NUR ---
PT ABLE TO RESPOND TO COMMANDS. STILL SLOW AND WEAK BUT RESPONDING. PT MORE ALERT. PRECEDEX GTT HAS BEEN TURNED OFF. PT IS LAUGHING WITH HIS FAMILY AND ASKING APPROPRIATE QUESTIONS. PT ASKED HOW LONG HE HAS BEEN HERE AND HAS ASKED TO USE THE BEDPAN. PT IS GRIPPING WITH BOTH HANDS. STILL UNABLE TO WIGGLE TOES. PT OPENS HIS EYES SPONTANIOUSLY, MOVES ARMS AND LEGS PURPOSEFUL. PT STILL ON HIGH FLOW NASAL CANNULA, COURSE LUNG SOUNDS BUT ABLE TO COUGH. PT ABLE TO COUGH SPUTUM UP AND CLEAR THROAT.
[2018-03-25] VITALS (11 sets, daily range): BP systolic 124–156; BP diastolic 68–82
[2018-03-25 03:55] LABS: ABSOLUTE LYMPHOCYTES 1.3 thou/uL (0.8-5.3); ABSOLUTE MONOCYTES 0.1 thou/uL (0.0-1.2); ABSOLUTE NEUTROPHILS 8.2 thou/uL (1.6-8.1); BASOPHILS 0.2 %; HEMATOCRIT 37.7 % (42.0-52.0); HEMOGLOBIN 12.2 gm/dL (14.0-18.0); LYMPHOCYTES 13.6 %; MCHC 32.4 g/dL (28.0-37.0); MCV 101.9 fL (80.0-100.0); MONOCYTES 1.4 %; MPV 8.2 fl. (7.2-11.1); NUCLEATED RBCS 0 /100WBC; PLATELET COUNT* 181 thou/uL (150-400); POLYS 84.8 %; RDW-CV 14.9 % (10.5-14.5); WBC 9.7 thou/uL (4.0-11.0)
[2018-03-25 04:18] LABS: CREATININE 0.7 mg/dL (0.6-1.3); POTASSIUM 3.9 mmol/L (3.5-5.1)
--- NOTE | 2018-03-25 07:48 | NUR ---
PT IS FOLLOWING COMMANDS, TRIBUNAL MEMBER AND WIGGLES TOES ON COMMAND ,TALKING TO FAMILY, PT IS SEVERELY WEAK, REQUIRES X2 ASSIST TO BEDPAN,PT MAINTANING SATS IN UPPER 90'S ON 8L HIGH FLOW. PT HAD FREQUENT DIARRHEA STOOLS LAST NIGHT, DR BATISTA WAS NOTIFIED, TUBE FEEDING HELD, CDIFF SAMPLE SENT TO LAB AND NUTRITION CONSULTED PER DR'S ORDERS.
--- NOTE | 2018-03-25 11:01 | NUR ---
PT.WAS UP IN WC GETTING READY TO GO TO CT. WAS EXTUBATED OVER THE WEEKEND. WAS ALERT. PER NURSING HE IS SPEAKING WITH HIS FAMILY,LAUGHING,ETC. IS TELE MED STATUS NOW.
--- NOTE | 2018-03-25 19:15 | NUR ---
PT ASSESSMENT CHARTED. VSS THROUGHOUT SHIFT. PT/OT/ST WORKED WITH PATIENT. UP WITH 2 ASSIST THIS MORNING TO THE COMMODE AND IS NOW UP WITH 1 ASSIST TO THE BEDSIDE COMMODE. NO REPORTS OF PAIN. SPEECH THERAPY RECOMMENDED REGULAR DIET WITH THIN LIQUIDS. PT HAD A TRAY FOR DINNER AND TOLERATED WELL. ALSO ABLE TO TAKE PO MEDS WITHOUT DIFFICULTY. PT TO CT THIS MORNING.
[2018-03-26] VITALS (8 sets, daily range): BP systolic 118–133; BP diastolic 52–72
--- NOTE | 2018-03-26 06:51 | NUR ---
Pt speaks Kyrgyz only. stayed in room overnight, also Kyrgyz-speaking only. Recliner brought into room for per family request. VSS. O2 at 3L per NC; SaO2 low to mid-90s. SR per monitor. Tmax 99.3 overnight. Pt appeared to be sleeping soundly shortly after 0600. Will continue to monitor.
--- NOTE | 2018-03-26 09:49 | NUR ---
PT ASSESSMENT CHARTED. VSS THIS MORNING. EATING WITHOUT DIFFICULTY. TRANSFERED TO ROOM 213.
--- NOTE | 2018-03-26 10:56 | NUR ---
PATIENT ARRIVED FROM ICU THIS AM PER BED. PATIENT IS ALERT AND ORIENTED X 4. HE DENIES CHEST PAIN. O2 SAT 91 %. PATIENT PLACED ON 02 AT 2 LITERS. PLACED ON TELE MONITOR. TELE SHOWS NSR. PATIENT ORIENTED TO ROOM AND PROCEDURES. HE IS RESTING AT THIS TIME. HIS FAMILY IS AT THE BEDSIDE. WILL CONTINUE TO MONITOR.
--- NOTE | 2018-03-26 14:20 | 2DMMODE ---
[address] [place] [address] 2 D/M-MODE ECHOCARDIOGRAM Name: FAHAD STEVENS Room: [address] ADM IN R#: [id number] Admission: 03/19/18 Attend Phys: Seng Herrera Discharge: Date of : 60 Date of Service: 03/26/18 1420 Report #: [id number] THIS REPORT FOR: //name// APPROVED REPORT Study performed: 03/26/2018 11:28:57 EXAM: Limited 2D Echocardiogram Patient Location: In-Patient Room #: [facility] Status: routine BSA: 1.90 HR: 74 bpm BP: 124/72 mmHg Rhythm: NSR Other Information Study Quality: Good Indications Non STEMI Dyspnea Left Ventricle The left ventricle is normal size. There is normal left ventricular wall thickness. The left ventricular systolic function is normal. LVEF is 60-65%. Right Ventricle The right ventricle is normal size. The right ventricular systolic function is normal. Atria The left atrium size is normal. The right atrium size is normal. Aortic Valve The aortic valve is normal in structure. Mitral Valve The mitral valve is normal in structure. Tricuspid Valve The tricuspid valve is normal in structure. Pulmonic Valve [address] [place] [address] 2 D/M-MODE ECHOCARDIOGRAM Name: FAHAD STEVENS Room: [address] IN .R.#: [id number] Admission: 03/19/18 Attend Phys: Seng Herrera Discharge: Date of : 60 Date of Service: 03/26/181419 Report #: [id number] The pulmonary valve is normal in structure. Great Vessels The aortic root is normal in size. Pericardium There is no pericardial effusion. <Conclusion> The left ventricle is normal size. There is normal left ventricular wall thickness. The left ventricular systolic function is normal. LVEF is 60-65%. <ELECTRONICALLY SIGNED> By: Gennaro Ly MD, FACC 03/26/181419 19 19 Gennaro Ly MD, [facility]ACC /INF
[2018-03-27] VITALS (7 sets, daily range): BP systolic 116–132; BP diastolic 66–73
[2018-03-27 05:32] LABS: HEMATOCRIT 33.3 % (42.0-52.0); MCH 33.7 pg (26.0-34.0); MCHC 32.9 g/dL (28.0-37.0); MCV 102.4 fL (80.0-100.0); RBC 3.26 mil/uL (4.50-6.00); RDW-CV 14.4 % (10.5-14.5); WBC 6.4 thou/uL (4.0-11.0)
[2018-03-27 05:52] LABS: ALBUMIN 2.4 g/dL (3.4-5.0); CALCIUM 8.1 mg/dL (8.5-10.1); CREATININE 0.8 mg/dL (0.6-1.3); MAGNESIUM 2.2 mg/dL (1.8-2.4); POTASSIUM 3.5 mmol/L (3.5-5.1); TOTAL BILIRUBIN 0.7 mg/dL (<0.1-1.0); TOTAL PROTEIN 5.8 g/dL (6.4-8.2)
--- NOTE | 2018-03-27 05:54 | NUR ---
ASSUMED PT CARE AT 2330. PT ASLEEP, VOICED NO CONCERNS. HOURLY ROUNDING COMPLETED. PT TRACING SINUS RHYTHM ON FIREWOOD CUTTER. SPOUSE IN ROOM. PT PROGRESSING TOWARDS GOALS. CALL LIGHT WITHIN REACH.
--- NOTE | 2018-03-27 10:05 | NUR ---
KIM spoke with Padmini from [facility] [employer], she plans to meet with Pt's dtr today. Padmini is unsure if Pt will qualify for [place], d/t his citizenship. Padmini to update KIM post meeting.
--- NOTE | 2018-03-27 18:52 | NUR ---
VSS, ASSUMED CARE THIS AM, ASSESSMENT PERFORMED AND CHARTED, FALL PRECAUTIONS IN PLACE AND CALL LIGHT IN REACH, PT IS A&O4, UP AD LORELEI, TRACING SR ON THE MONITOR, IS ON RA, DENIES AY PAIN, HAS FOALY IN PLACE AND IS DRAINING, PT CAN ONLY SPEAK ESTONIAN, HOURLY ROUNDS COMPLETED AND WILL FOLLOW WITH PLAN OF CARE.
[2018-03-28] VITALS: BP 138/74
[2018-03-28 04:00] VITALS: BP 94/69
--- NOTE | 2018-03-28 06:49 | NUR ---
ASSUMED PT CARE @ 1930. A+O X4. VSS. PT REPORTED MILD DISCOMFORT AT RT GROIN CARDIAC CATH PUNCTURE SITE. NO DRAINAGE OR S+S OF INFECTION. PT RESTED THROUGH NIGHT WITHOUT INCIDENT. (LYTTON LITHUANIAN SPEAKING RN ASSISTED WITH TRANSLATION). CALL LIGHT AT BEDSIDE. HOURLY ROUNDING FOR SAFETY.
[2018-03-28 08:00] VITALS: BP 117/65
--- NOTE | 2018-03-28 08:33 | NUR ---
ANAND CATHETER REMOVED.
--- NOTE | 2018-03-28 09:32 | NUR ---
Per [employer], Pt does not qualify for [place].
[2018-03-28 12:00] VITALS: BP 143/85
[2018-03-28 17:00] VITALS: BP 143/70
--- NOTE | 2018-03-28 17:04 | NUR ---
CALLED DR CARNEY. HE WANTS PT TO KNOW HE IS GETTING MEDICATION FOR HIS HEART R/T STENT AND BE SURE INTERPETER IS IN ROOM ON D/C.
--- NOTE | 2018-03-28 17:44 | NUR ---
CALLED JOSE EARLY FOR UROLOGY PT HAS VOIDED 5 TIMES. BLADDER SCAN HAD 187. LM AT .
--- NOTE | 2018-03-28 17:54 | NUR ---
PT HAS RESTED IN HIS ROOM WITH FAMILY AT BEDSIDE. ANAND WAS D/C'D THIS AM AND PT HAS HAD NO TROUBLE VOIDING. VSS WNL. PT HAS BEEN AFEBRILE. EDUCATION GIVEN ON DEMAND. HOURLY ROUNDING COMPLETE.
[2018-03-28 20:00] VITALS: BP 135/76
[2018-03-29] VITALS: BP 123/74
[2018-03-29 04:00] VITALS: BP 116/66
--- NOTE | 2018-03-29 06:27 | NUR ---
ASSUMED PT CARE @ 1930. FLUENT TURKMEN SPEAKING RN PRESSENT FOR ASSESSMENT AND MEDS. NO CONCERNS OR DISCOFORT REPORTED OR OBSERVED. VSS. SR ON MONITOR. CALL LIGHT AT BEDSIDE. WILL CONTINUE HOURLY ROUNDING FOR SAFETY.
[2018-03-29 10:48] VITALS: BP 111/71
[2018-03-29 12:00] VITALS: BP 117/62
[2018-03-29] MEDS ORDERED: EFFIENT10 MG PO (12:52)
[2018-03-29] MEDS ORDERED: ATORVASTATIN CA40 MG PO (12:52)
[2018-03-29] MEDS ORDERED: LISINOPRIL10 MG PO (12:52)
[2018-03-29] MEDS ORDERED: COREG6.25 MG PO (12:52)
[2018-03-29] MEDS ORDERED: GLUCOPHAGE850 MG PO (12:52)
[2018-03-29] MEDS ORDERED: GLYBURIDE 5 MG T5 M1 PO (12:57)
--- NOTE | 2018-03-29 14:52 | NUR ---
PATIENT UP IN [place] AWAITING DISCHARGE. DENIES CP OR SOA.
[2018-03-29 15:36] VITALS: BP 110/58
[2018-03-29 17:23] VITALS: BP 124/72
--- NOTE | 2018-03-29 17:26 | NUR ---
PATIENT DISCHARGED TO FAMILY. INSTRUCTIONS GIVEN PER DENTAL LABORATORY MANAGER PHONE.
== END 2018-03-29 17:15 | disposition home or self-care (01) | DRG 246 ==
LOC: M.ERS 10:29 → M.TBA-ER 11:47 → M.TBA-CV 11:47 → M.ICU 11:47 → M.ERS 11:47 → M.ICU 12:14 → M.2W 03-26 09:50
PROVIDERS: Family Medicine; Internal Medicine; Internal Medicine Pulmonary Disease; ADMIT Internal Medicine
DX: I21.4 Non-ST elevation (NSTEMI) myocardial infarction (principal); J96.01 Acute respiratory failure with hypoxia; I50.23 Acute on chronic systolic (congestive) heart failure; I49.01 Ventricular fibrillation; K72.00 Acute and subacute hepatic failure without coma; R57.0 Cardiogenic shock; J69.0 Pneumonitis due to inhalation of food and vomit; G93.41 Metabolic encephalopathy; I47.0 Re-entry ventricular arrhythmia; J98.11 Atelectasis; E87.2 Acidosis; R65.10 Systemic inflammatory response syndrome (SIRS) of non-infectious origin without acute organ dysfunction; E87.0 Hyperosmolality and hypernatremia; N35.911 Unspecified urethral stricture, male, meatal; E11.9 Type 2 diabetes mellitus without complications; I95.9 Hypotension, unspecified; I11.0 Hypertensive heart disease with heart failure; N40.0 Benign prostatic hyperplasia without lower urinary tract symptoms; I45.9 Conduction disorder, unspecified; I25.10 Atherosclerotic heart disease of native coronary artery without angina pectoris; I25.5 Ischemic cardiomyopathy; D64.9 Anemia, unspecified; Z82.49 Family history of ischemic heart disease and other diseases of the circulatory system; Z79.82 Long term (current) use of aspirin; Z79.899 Other long term (current) drug therapy